=== PATIENT | female | born 1980 | race Caucasian/White ===

== ENCOUNTER 2023-11-30 11:52 | Outpatient (CLI) | payer BC, SELFPAY ==
--- NOTE | 2023-11-30 12:00 | CRLHL7_ITS ---
For Patients: As a result of the Century Cures Act, medical imaging exams and procedure reports are released immediately into your electronic medical record. You may view this report before your referring provider. If you have questions, please contact your health care provider. INDICATION: menorrhagia COMPARISON: none TECHNIQUE: 2D lindquist scale and color Doppler images were acquired of the pelvis using a transabdominal and transvaginal approach. FINDINGS: Small partially exophytic uterine fibroid posteriorly measuring 12 x 7 x 13 millimeters. Additional right superior uterine fibroid measures 2.1 x 1.6 x 2.1 cm. Uterus measures 8.1 cm in length by 5.0 cm in AP diameter by 5.8 cm in transverse dimension. The endometrial lining appears normal and measures 4.7 mm in composite thickness. The right ovary measures 3.3 x 1.8 x 2.2 cm in size and the left ovary measures 3.2 x 1.4 x 1.8 cm. The ovaries demonstrate normal arterial and venous blood flow on color Doppler analysis. There are no suspicious fluid collections within the cul-de-sac. Partially collapsed right adnexal cyst is present measuring 2.4 x 1.9 x 2.1 cm. No internal blood flow. IMPRESSION: Endometrial thickness 4.7 millimeters. No endometrial fluid. Dictated by Yg Villarreal MD @ 11/30/2023 12:49:19 PM (Electronically Signed)
== END 2023-11-30 11:53 | disposition home or self-care (01) ==
LOC: US 11:53
PROVIDERS: Visit Provider Obstetrics & Gynecology
DX: N92.0 Excessive and frequent menstruation with regular cycle (principal); R93.89 Abnormal findings on diagnostic imaging of other specified body structures
CPT/HCPCS: 76830; 76856

== ENCOUNTER 2023-12-21 06:00 | Day surgery (SDC) | payer BC, SELFPAY ==
[2023-12-21] MEDS: LACTATED RINGERS 1000 ML 1,000 ML 100 ML IV (05:55)
[2023-12-21 06:18] VITALS: BMI 31.4
[2023-12-21 06:26] VITALS: BP 134/91; PULSE 75; RESP 16; TEMP 36.6; O2SAT 98
[2023-12-21 06:29] LABS: Ur HCG Qualitative* Negative (Negative)
[2023-12-21] MEDS: SODIUM CHLORIDE 0.9 % (FLUSH) 10 ML SYRINGE IVF (06:44)
--- NOTE | 2023-12-21 07:27 | W.PM.H&PU ---
History & Physical Update History & Physical Update H&P Reviewed and patient assessed: No changes noted
--- NOTE | 2023-12-21 07:28 | P.PCN_ITS ---
Procedure Note Time Seen by Provider: 08:11 Date Seen: 12/21/23 Date of procedure: 12/21/23 Will [facility] bill your pro fee for this procedure?: Yes Procedure: Preoperative diagnosis: 43 yo with menorrhagia. Postoperative diagnosis: Same. Procedure: Cervical polypectomy Hysteroscopy, dilation and curettage, endometrial ablation. Anesthesia: Mac and paracervical block. Surgeon: Macrina Montes Assist: None Estimated blood loss: 25 mL IV Fluid: 900 mL Specimen: Cervical polyp, Endometrial curettings, sent to path. Findings: On exam under anesthesia: Vaginal canal appeared normal. The cervix had a 0.5 x 0.5 cm polyp. The uterus was mid position, approximately 8 week size, mobile and without masses or nodularity palpable. Adnexa were without mass or fullness palpable bilaterally. On hysteroscopy: No specific abn ormality, possible polyp. No other abnormalities noted. The uterus sounded to 9 cm. Cervical length 4.5 cm. Cavity length: 4.5. Procedure: Magdalene was taken to the operating room where conscious sedation was found to be adequate. She was placed in a dorsal lithotomy position and an exam under anesthesia was performed with the findings stated above. She was then prepped and draped in a normal sterile manner. An a bivalve is sterile speculum was placed in the vaginal canal. A paracervical block was placed using 0.5% Marcaine: 5 mL were injected at the 4 and 8 o'clock positions on the cervix. The cervical polyp was grasped with a ring forceps and twisted off of its stock in sent to pathology. A single-toothed tenaculum clamp was placed on the anterior lip of the cervix. The cervix was then dilated to Hegar 6. Uterus sounded to 9 cm. The cervix measured 4.5 cm. There for the cavity length was 4.5 cm. The Truclear hysteroscope was advanced into the uterus. A diagnostic hysteroscopy performed with normal saline as the insufflation medium. Findings are stated above. The Truclear incisor was then advanced into the camera. And the curettage performed with this incisor. The curettage took approximately 2 min. The cavity appeared normal once the curettage was performed completed. Total saline used for insufflation: 1280 mL. Saline deficit: 80 mL The hysteroscope was removed. The cervix was then dilated to Hegar 8. The Blaire device was advanced into the uterus. The cavity check was completed and the ablation took place over 2 min. Patient received 30 mg of Toradol IV. The Blaire was removed, the hysteroscope readvanced to document ablation of the entire cavity. The hysteroscope was then removed. The single-toothed tenaculum removed from the anterior lip of the cervix. Two sutures of 3-0 Vicryl in a [id number] manner were placed at the tenaculum sites to obtain hemostasis The patient tolerated this procedure well. Sponge, lap and instrument counts were correct x2 at the end of the procedure and the patient was taken to the recovery area in stable condition.
[2023-12-21] MEDS: BUPIVACAINE 0.5% 30 ML INJECTION (07:54)
[2023-12-21] MEDS: SILVER NITRATE APPLICATOR 1 EACH STICK..EA. TOPICAL (07:55)
[2023-12-21] MEDS: KETOROLAC 30 MG/ML inj IVP (08:00)
--- NOTE | 2023-12-21 08:13 | W.ANESCHARGE ---
Anesthesia Charges Start Date/Time Anesthesia Start Date: 12/21/23 Anesthesia Start Time: 07:25 Stop Date/Time Anesthesia Stop Date: 12/21/23 Anesthesia Stop Time: 08:13
[2023-12-21 08:15] VITALS: BP 139/91; PULSE 82; RESP 16; TEMP 36.4; O2SAT 98
[2023-12-21 08:20] VITALS: BP 156/106; PULSE 73; RESP 16; O2SAT 98
[2023-12-21 08:30] VITALS: BP 164/104; PULSE 69; RESP 16; O2SAT 99
[2023-12-21 08:45] VITALS: BP 154/96; PULSE 72; RESP 16; O2SAT 99
[2023-12-21 09:00] VITALS: BP 152/98; PULSE 68; RESP 16; O2SAT 99
--- NOTE | 2023-12-21 10:22 | W.ANESCHARGE ---
Anesthesia Charges Start Date/Time Anesthesia Start Date: 12/21/23 Anesthesia Start Time: 07:25 Stop Date/Time Anesthesia Stop Date: 12/21/23 Anesthesia Stop Time: 08:13
== END 2023-12-21 09:25 | disposition home or self-care (01) ==
LOC: OR 06:01
PROVIDERS: Visit Provider Obstetrics & Gynecology
PROC: 0UF98ZZ Fragmentation in Uterus, Via Natural or Artificial Opening Endoscopic (ICD-10-PCS; CPT 58563; principal; 2023-12-21 07:15)
DX: N92.0 Excessive and frequent menstruation with regular cycle (principal); N84.1 Polyp of cervix uteri; R73.03 Prediabetes; I10 Essential (primary) hypertension
CPT/HCPCS: 58563; 00952; 81025; 88305; A9270; C1782; J0665; J1100; J1885; J2250; J2405; J2704; J3010; J7120